=== PATIENT | female | born 1950 | race Caucasian/White ===

== ENCOUNTER → 2021-02-22 14:51 | Outpatient (CLI) | payer MEDICARE, SELFPAY ==
--- NOTE | ~2021-02-22 | XR_ITS ---
XR wrist LT min 3V DATE: 02/22/2021 15:01 INDICATION: Localized swelling, mass and lump TECHNIQUE: 4 views of left breast COMPARISON: None FINDINGS: There is diffuse osteopenia. There is moderately prominent osteoarthritis at the first carpometacarpal joint. There is osteophytic change at the metacarpophalangeal joints and at the included interphalangeal joint of the first digi t. No fracture or dislocation, periosteal reaction or bone destruction, erosive change or chondrocalcino sis is detected. IMPRESSION: Osteopenia Polyarticular osteoarthritis Reviewed, dictated and finalized at location A.
== END ==
PROVIDERS: PCP Family Medicine; Visit Provider Family Medicine
DX: M19.032 Primary osteoarthritis, left wrist (principal)
CPT/HCPCS: 73110